=== PATIENT | male | born 1960 | race Caucasian/White ===

== ENCOUNTER 2017-09-11 07:49 | Inpatient (IN) | payer OTHER, SELFPAY ==
[2017-09-11] VITALS (12 sets, daily range): BP systolic 117–164; BP diastolic 74–95; PULSE 76–114; RESP 14–20; TEMP 36.8–37.4; O2SAT 96–98; BMI 32.2; BMI 31.5
--- NOTE | 2017-09-11 08:16 | EKG12_ITS ---
Test Reason : SOB Blood Pressure : / mmHG Vent. Rate : 078 BPM Atrial Rate : 078 BPM P-R Int : 184 ms QRS Dur : 082 ms QT Int : 378 ms P-R-T Axes : 070 040 057 degrees QTc Int : 430 ms Normal sinus rhythm Normal ECG Confirmed by ANDRE SZYMANSKI, TAMI ([id number]), commercial production editor NEISHA GIBBS ([id number] on 09/12/2017 1:07:22 PM Referred By: LINDSAY Confirmed By:TAMI POWELL MD
--- NOTE | 2017-09-11 08:17 | RAD_ITS ---
STUDY: X-RAY CHEST REASON FOR EXAM: Male, 56 years old. Shortness of breath and cough TECHNIQUE: PA and lateral views of the chest. COMPARISON: 2011 FINDINGS: EKG leads overlie the chest, stable elevation of the right hemidiaphragm Lungs are expanded. Left lung is clear. Right lung shows new opacification the right lung base, likely atelectasis but early infiltrate cannot be excluded. No demonstrated effusion. Follow-up recommended to assure resolution Normal size heart. Normal mediastinum and raulito. Normal visualized pulmonary arteries. Normal visualized aortic arch and descending thoracic aorta. Normal visualized thoracic spine. Normal visualized ribs, clavicles, and shoulders. There is no demonstrated abnormality of the visualized soft tissue structures of the upper abdomen. RAD/Chest PA and Lateral IMPRESSION: New opacification in the right lung base, likely atelectasis but early infiltrate cannot be excluded. Follow-up recommended to assure resolution Electronically Signed: Larry Gonsales MD at 9:28 EDT , Service support ,
--- NOTE | 2017-09-11 08:22 | ED.VISSUMM ---
- ER Visit Summary Date of Service: 09/11/17 Chief Complaint: Shortness of breath History of Present Illness: The patient is a 56 M states that this morning he was sent to the emergency department by urgent care for low oxygen levels. States his oxygen levels were 92% there. Patient reports that he quit smoking about 1 year ago. Patient states that 6 weeks ago began to have shortness of breath and a cough. He went to urgent care and was placed on a course of doxycycline and prednisone. 2 weeks later he returned had a chest x-ray that was clear. He was placed on tapering dose of prednisone and albuterol MDI. He states that by last Monday he was feeling better but his cough returned on and now seems to be worse. He notes a yellowish to green phlegm production. Denies any fevers. He traveled to [place] over the weekend. She denies a history of asthma COPD. He denies any chest pain. Has a leg swelling. No night sweats or weight loss. He states that in March of last year he had a chest x-ray that showed a left-sided nodule. He ended up having a CT scan and they recommended follow-up in 1 year. Physical Examination: 158/95 temperature 98.2 heart rate of 85 respirations are 17 pulse ox is 96% on room air with a good waveform Gen: Well-nourished well-developed Head: Normocephalic atraumatic Eyes: Perrl EOMI ENT: TMs clear no rhinorrhea moist mucous membranes Neck: Supple no lymphadenopathy no JVD nontender CVS: Regular rate rhythm no murmurs normal S1-S2 Respiratory: No distress bilateral expiratory wheezing left greater than right bilaterally chest nontender Abdomen: Soft nontender nondistended normal bowel sounds no masses Back: Nontender Extremity: Nontender no edema Skin: Normal color no rash Neuro: alert orientated ?3 CN II-XII intact normal strength sensation reflexes gait cerebellar Psych: Normal affect normal mood Test Results: Count 11.2. EKG sinus at a rate of 78. Chest x-ray shows right-sided atelectasis versus infiltrate. Emergency Department Course and Treatment: Breathing treatments as well as Solu-Medrol. Repeat examination shows the patient to have increased aeration but significantly more wheezing now inspiratory and expiratory. Patient also received Levaquin after blood cultures. I believe this is a failure of outpatient treatment. Our plan is admission. Impression:. Pneumonia This note was generated with [employer] dictation software. It may contain incorrect words, spelling, and punctuation that were not noted in review of the chart prior to signing ED Disposition - Plan for ED Patient: Chief Complaint: Shortness of Breath Referrals: Care Physician,No Primary [Primary Care Provider] -
[2017-09-11] MEDS: Ipratropium/Albuterol Sulfate 3 ML AMPUL.NEB INHALATION ×3 (08:30→19:44)
[2017-09-11] MEDS: Albuterol 2.5 MG/3 ML VIAL.NEB. INHALATION ×3 (08:30→08:51)
[2017-09-11 08:38] LABS: Absolute Lymphocyte Count 2.25 X10^3/ul (0.83-4.51); Absolute Neutrophil Count 6.1 X10^3/uL (2.0-7.7); Basophil# 0.07 X10^3/uL; Basophil% 0.6 % (0-1); Eosinophils% 17.2 % (0-5); Hematocrit 43.5 % (40-54); Hemoglobin 15.7 g/dl (13.0-16.5); Lymphocyte # 2.25 X10^3/ul (4.0); Lymphocyte % 19.2 % (19-41); Mean Corp Hgb Conc 36.1 g/gl (32-36); Mean Corpuscular Volume 91.4 fL (80-94); Mean Platelet Vol. 9.4 fl (6.2-12.0); Monocyte# 1.03 X10^3/uL; Monocyte% 8.8 % (0-10); Neutrophil # 6.13 X10^3/uL (2.7-7.7); Neutrophil % 52.3 % (47-70); Platelet Count 169 K/mm3 (150-450); RBC Distribution Width SD 43.1 fl (35.1-43.9); Red Blood Count 4.76 M/mm3 (4.6-6.2); White Blood Count 11.7 K/mm3 (4.4-11.0)
[2017-09-11 08:39] LABS: Differential Indicated SCAN CRITERIA MET; Eosinophil# 2.02 X10^3/uL; POSITIVE COUNT NO; POSITIVE DIFFERENTIAL YES; POSITIVE MORPHOLOGY NO
[2017-09-11 08:54] LABS: Anion Gap 7 (5-15); BUN 14 mg/dL (7-18); BUN/Creat Ratio 15.7 RATIO (10-20); Calcium,Total 8.2 mg/dL (8.5-10.1); Chloride 109 mmol/L (98-107); Creatinine, Serum 0.89 mg/dL (0.70-1.30); EST Glomerular Filtration Rate 93 mL/min (>60); Est Glom Filt Rate - Afr Amer 113 mL/min (>60); Estimated Creatinine Clearance 89.66 ml/min; Glucose 138 mg/dL (74-106); Potassium 4.1 mmol/L (3.5-5.1); Sodium Level 141 mmol/L (136-145)
[2017-09-11 09:12] LABS: BNP,B-Type NATRIURETIC PEPTIDE 13.4 pg/mL (0-100)
[2017-09-11] MEDS: MethylPREDNISolone 125 MG/2 ML Vial IV (11:06)
[2017-09-11] MEDS: levoFLOXacin IV 750 MG/150 ML BAG 100 MG IV (11:19)
--- NOTE | 2017-09-11 12:14 | HP.PCM_ITS ---
Problem List (1) COPD exacerbation Status: Acute (2) PNA (pneumonia) Status: Acute Qualifiers: Laterality: right Lung location: lower lobe of lung (3) Anxiety Status: Chronic History of Present Illness Date of Admission: 09/11/17 Chief Complaint: SOB The patient is a 56 year old M who is a prior smoker and former alcoholic who presents to the ER with SOB at rest and exertion that has worsened over the last 2 days. He has been dealing with this for about a month. He was treated by his PCP initially a month ago with doxycycline and steroids. He did not get better and was then placed on a steroid taper starting with prednisone 60 mg. He started to improve but worsened 2 days ago. He has been travelling back and forth from [place] where he is moving here from. He denies sick contacts. He has no fever or chills. He has a cough with yellow green sputum production. He has no CP or pleurisy. He quit smoking one year ago and has no prior dx of COPD. He is very wheezy. He is stable off O2 in the ER. [] Past Medical History Past Medical History (Chronic Problems): Chronic Problems Anxiety (Chronic) Allergies No Known Allergies Allergy (Verified 09/11/17 07:50) Home Medications: Ambulatory Orders Medication Instructions Recorded Citalopram [Celexa] 40 mg PO DAILY 09/11/17 Quetiapine Fumarate [Seroquel] 100 mg PO QHS 09/11/17 Surgical History: no surgical history Psychiatric History: Anxiety Lives: With Family Smoking Status: Former smoker Tobacco Use: Cigarettes Alcohol: Sober Drugs: None - *Family History Maternal History Items: Cancer - uterine, Diabetes Paternal History Items: Heart Disease - CHF Review of Systems Constitutional: Denies: Chills, Fever, Weight Change HEENT: Denies: Head Aches, Sinus Congestion, Sinus Drainage Cardiovascular: Denies: Chest Pain, Palpitations Respiratory: Reports: Cough, Shortness of Breath, Shortness of breath at rest, Shortness of breath upon exertion, Sputum production, Wheezing Gastrointestinal: Denies: Abdominal Pain, Nausea, Vomiting Genitourinary: Denies: Dysuria Musculoskeletal: Denies: Joint Pain, Joint Tenderness Skin: Denies: Rash, Wounds Neurological: Denies: Numbness, Tingling, Focal weakness Psychiatric: Reports: Anxiety. Denies: Depression, Homicidal Ideations, Suicidal Ideations Hematologic/ Lymphatic: Denies: Easy Bruising, Easy Bleeding VTE Information - Inpt Only VTE Present on Admission: No VTE Mechan Device Prophylaxis: SCD's VTE Pharm Prophylaxis ordered?: Yes Patient Problems: Active and Suspected Problems COPD exacerbation (Acute) PNA (pneumonia) (Acute) - Physical Exam General: Alert, Oriented x3, Cooperative HEENT: Atraumatic, PERRLA, EOMI, Normocephalic Neck: Supple, No JVD, Negative Carotid Bruits Lungs: Normal air movement, Wheezes - severe wheezing throughout all lung leahy. Cardiovascular: Regular rate, No murmurs Abdomen: Bowel Sounds Present, Soft, Non Tender Extremities: No edema, Capillary Refill Less than 3 Seconds Skin: No rashes, No breakdown Musculoskeletal: No Tenderness to Palpation of Joints or Extremities Neurological: Cranial nerves II-XII grossly intact Psych/Mental Status: Normal Affect, Appropriate Vital Signs Temp Pulse Resp BP Pulse Ox 98.2 F 81 20 H 117/74 96 09/11/17 07:50 09/11/17 11:08 09/11/17 11:08 09/11/17 11:08 09/11/17 11:08 Oxygen Delivery Method Room Air Weight: 96.1 kg Body Mass Index (BMI) 32.2 Laboratory Tests Past 24 Hrs 09/11/17 09/11/17 09/11/17 08:30 08:30 08:30 WBC 11.7 H RBC 4.76 Hgb 15.7 Hct 43.5 MCV 91.4 MCH 33.0 H MCHC 36.1 H RDW 13.0 RDW Differential 43.1 Plt Count 169 MPV 9.4 Immature Gran % (Auto) 1.900 H Neut % (Auto) 52.3 Lymph % (Auto) 19.2 [place] % (Auto) 8.8 Eos % (Auto) 17.2 H Baso % (Auto) 0.6 Absolute Neuts (auto) 6.1 Absolute Lymphs (auto) 2.25 Total Counted Not Reportable Differential Comment COMMENT Diff Path Review May foll Sodium 141 Potassium 4.1 Chloride 109 H Carbon Dioxide 25.0 Anion Gap 7 BUN 14 Creatinine 0.89 Estim Creat Clear Calc 89.66 Est GFR (MDRD) Af Amer 113 Est GFR (MDRD) Non-Af 93 BUN/Creatinine Ratio 15.7 Glucose 138 H Calcium 8.2 L Troponin I < 0.02 B-Natriuretic Peptide 13.4 Assessment/Plan Active and Suspected Problems COPD exacerbation (Acute) PNA (pneumonia) (Acute) 1. Acute exacerbation of COPD - no prior dx. Currently off O2 and stable. Failed outpatient doxy and prednisone x 2. Solumedrol and duonebs. Incentive spirometer. Trop neg. BNP neg. 2. Possible RLL pna - possible infiltrate vs atelectasis on CXR. Leukocytosis, however he has been on steroids. Continue levaquin po, 1 dose IV in ER. Check sputum cx, resp panel, urine antigens. Add mucinex, IS, PEP therapy. 3. Anxiety - home meds 4. Former smoker , quit 1 year ago 5. Former alcoholic DVT ppx: lovenox DC planning: possibly tomorrow, doubt home going needs This patient was seen by Del Lawson PA-C under the supervision of Doctor Rushing.
[2017-09-11] MEDS: Heparin Injection 5,000 UNITS/ML Syringe 5000 UNITS SC ×2 (14:05→21:13)
[2017-09-11] MEDS: Acetaminophen 325 MG Tablet 650 MG PO ×2 (16:36→23:05)
[2017-09-11] MEDS: guaiFENesin Dm 10 ML UDC PO (17:40)
[2017-09-11] MEDS: Mag Hydrox/Al Hydrox/Simeth 30 ML UDC PO ×2 (18:33→23:05)
[2017-09-11] MEDS: QUEtiapine 100 MG Tablet PO (23:05)
[2017-09-12] VITALS (8 sets, daily range): BP systolic 127–160; BP diastolic 66–81; PULSE 80–103; RESP 16–20; TEMP 36.4–37.1; O2SAT 92–99
[2017-09-12] MEDS: guaiFENesin Dm 10 ML UDC PO ×2 (00:12→11:14)
[2017-09-12] MEDS: Ipratropium/Albuterol Sulfate 3 ML AMPUL.NEB INHALATION ×4 (00:54→18:44)
[2017-09-12] MEDS: Heparin Injection 5,000 UNITS/ML Syringe 5000 UNITS SC ×3 (05:55→22:03)
[2017-09-12 06:01] LABS: Absolute Lymphocyte Count 1.62 X10^3/ul (0.83-4.51); Absolute Neutrophil Count 10.6 X10^3/uL (2.0-7.7); Basophil# 0.01 X10^3/uL; Basophil% 0.1 % (0-1); Eosinophil# 0.09 X10^3/uL; Eosinophils% 0.7 % (0-5); Hematocrit 40.9 % (40-54); Lymphocyte # 1.62 X10^3/ul (4.0); Lymphocyte % 12.2 % (19-41); Mean Corp Hgb Conc 34.2 g/gl (32-36); Mean Corpuscular Volume 93.4 fL (80-94); Monocyte# 0.91 X10^3/uL; Monocyte% 6.9 % (0-10); Neutrophil # 10.55 X10^3/uL (2.7-7.7); Neutrophil % 79.6 % (47-70); Platelet Count 156 K/mm3 (150-450); RBC Distribution Width SD 44.2 fl (35.1-43.9); Red Blood Count 4.38 M/mm3 (4.6-6.2); White Blood Count 13.3 K/mm3 (4.4-11.0)
[2017-09-12 06:20] LABS: POSITIVE COUNT NO; POSITIVE DIFFERENTIAL NO; POSITIVE MORPHOLOGY NO
--- NOTE | 2017-09-12 07:55 | RAD_ITS ---
STUDY: X-RAY CHEST REASON FOR EXAM: Male, 56 years old. Pneumonia. TECHNIQUE: PA and lateral views of the chest. COMPARISON: September 11, 2017. FINDINGS: The lungs are underexpanded, similar to the previous radiograph. There is mild interstitial thickening present in both lungs. There is no demonstrated pleural abnormality. Normal size heart. Normal mediastinum and raulito. There is prominence of the pulmonary hilar arteries without peripheral pulmonary vascular congestion. There is atherosclerotic calcification of the aortic arch with tortuosity. Normal visualized thoracic spine. Normal visualized ribs, clavicles, and shoulders. There is no demonstrated abnormality of the visualized soft tissue structures of the upper abdomen. RAD/Chest PA and Lateral IMPRESSION: No radiographic evidence of acute cardiopulmonary disease. Electronically Signed: Chelsea Alvarado MD at 8:23 EDT , Service support ,
[2017-09-12 08:29] LABS: Pathologist Review Reviewed
[2017-09-12] MEDS: Mag Hydrox/Al Hydrox/Simeth 30 ML UDC PO ×2 (08:50→22:03)
[2017-09-12] MEDS: Citalopram 40 MG TABLET PO (09:00)
[2017-09-12] MEDS: levoFLOXacin 750 MG Tablet PO (11:14)
--- NOTE | 2017-09-12 13:05 | CASEMGMT ---
See RN CM Assessment. DC PLAN: home -Intro role of CM to patient in room. He recently moved back to [place] from [place]. Does not have active medical or prescription coverage until September. -Pt has concerns re: cost of medications. SW consulted to assist with pharmacy assistance on dc through [facility] pharmacy. -PCP list given to pt who will set up with PCP after he reviews list with his . Lexx SWENSON RN ACM
--- NOTE | 2017-09-12 13:07 | PCM.PROGNOTE ---
Patient Problems: Active and Suspected Problems COPD exacerbation (Acute) PNA (pneumonia) (Acute) Subjective: Pt still very wheezy and SOB despite not needing O2. He continues to have a cough productive of yellow sputum. He had no fevers or chills overnight. Feels minimal improvement with the aerosols. - Physical Exam General: Alert, Oriented x3, Cooperative HEENT: Atraumatic, PERRLA, EOMI, Normocephalic Neck: Supple, No JVD, Negative Carotid Bruits Lungs: Normal air movement, Wheezes Cardiovascular: Regular rate, No murmurs Abdomen: Bowel Sounds Present, Soft, Non Tender Extremities: No edema, Capillary Refill Less than 3 Seconds Skin: No rashes, No breakdown Musculoskeletal: No Tenderness to Palpation of Joints or Extremities Neurological: Cranial nerves II-XII grossly intact Psych/Mental Status: Normal Affect, Appropriate, Alert and oriented to time, place, person, mood and affect Vital Signs Temp Pulse Resp BP Pulse Ox 97.6 F L 93 16 127/78 H 99 09/12/17 09:15 09/12/17 09:15 09/12/17 09:15 09/12/17 09:15 09/12/17 09:15 Oxygen Delivery Method Room Air Weight: 94.092 kg Body Mass Index (BMI) 31.5 Intake and Output for Last 24 Hours 09/10/17 09/11/17 09/12/17 23:59 23:59 23:59 Intake Total 1000 / 1000 900 / 900 Balance 1000 / 1000 900 / 900 Laboratory Tests Past 24 Hrs 09/12/17 05:18 WBC 13.3 H RBC 4.38 L Hgb 14.0 Hct 40.9 MCV 93.4 MCH 32.0 MCHC 34.2 RDW 13.0 RDW Differential 44.2 H Plt Count 156 MPV 10.0 Immature Gran % (Auto) 0.500 Neut % (Auto) 79.6 H Lymph % (Auto) 12.2 L [place] % (Auto) 6.9 Eos % (Auto) 0.7 Baso % (Auto) 0.1 Absolute Neuts (auto) 10.6 H Absolute Lymphs (auto) 1.62 Total Counted Not Reportable Medical Necessity - Tobacco Use Smoking Status: Former smoker Tobacco Use: Cigarettes Assessment/Plan Active and Suspected Problems COPD exacerbation (Acute) PNA (pneumonia) (Acute) 1. Acute exacerbation of COPD - no prior dx. Currently off O2 and stable. Failed outpatient doxy and prednisone x 2. Solumedrol. Minimal improvement with albuterol. Add duonebs. Add incentive spirometer. Trop neg, BNP neg. 2. Acute bronchitis - continue PO levaquin and mucinex. Pna ruled out with repeat CXR showing no infiltrate. Blood cx pending. Leukocytosis probably 2/2 steroids outpatient and inpatient. 3. Anxiety - home meds 4. Former smoker , quit 1 year ago 5. Former alcoholic DVT ppx: lovenox DC planning: minimally improved. Will continue to monitor overnight. This patient was seen by Del Lawson PA-C under the supervision of Doctor Rushing.
--- NOTE | 2017-09-12 16:55 | PCA ---
pt out walking in the [place]
[2017-09-12] MEDS: QUEtiapine 100 MG Tablet PO (22:03)
[2017-09-13] VITALS (8 sets, daily range): BP systolic 140–147; BP diastolic 80–84; PULSE 65–104; RESP 18–20; TEMP 36.4–37; O2SAT 95–98
[2017-09-13] MEDS: Albuterol 2.5 MG/3 ML VIAL.NEB. INHALATION (01:18)
[2017-09-13] MEDS: 0.9% NaCl Peripheral Flush Adult/Peds IV ×4 (06:00→22:23)
[2017-09-13] MEDS: Heparin Injection 5,000 UNITS/ML Syringe 5000 UNITS SC ×3 (06:00→22:23)
[2017-09-13] MEDS: Ipratropium/Albuterol Sulfate 3 ML AMPUL.NEB INHALATION ×3 (06:35→19:49)
[2017-09-13] MEDS: MethylPREDNISolone 125 MG/2 ML Vial 60 MG IV ×2 (10:23→14:12)
[2017-09-13] MEDS: levoFLOXacin 750 MG Tablet PO (10:24)
[2017-09-13] MEDS: Citalopram 40 MG TABLET PO (10:24)
[2017-09-13 12:29] LABS: Bacteria 0 SEEN /hpf (None Seen); Mucous, Urine 0 SEEN /hpf (<or=2+); Red Blood Cells-Urine 0 SEEN /hpf (0-5); Squamous Epithelial Cells - UA 0 SEEN /hpf (0-5); White Blood Cells 0 SEEN /hpf (0-5)
[2017-09-13 12:45] LABS: Color, Urine Yellow (Yellow); Glucose, Dipstick Normal (Normal); Ketone-Dipstick Negative (Negative); Leukocyte Esterase-Dipstick Negative /ul (Negative); Nitrite-Dipstick Negative (Negative); Occult Blood-Urine Negative /ul (Negative); Protein-Dipstick Negative (Negative); Urine Bilirubin Dipstick Negative (Negative); Urine Clarity Clear (Clear); Urine Urobilinogen Normal (Normal)
--- NOTE | 2017-09-13 14:51 | PCM.PROGNOTE ---
Patient Problems: Active and Suspected Problems COPD exacerbation (Acute) PNA (pneumonia) (Acute) Subjective: Pt continues to have cough and SOB, not requiring O2. No fevers or chills. Pt has not been receiving solumedrol, will start. He has been receiving aerosols. His respiratory panel is negative. - Physical Exam General: Alert, Oriented x3, Cooperative HEENT: Atraumatic, PERRLA, EOMI, Normocephalic Neck: Supple, No JVD, Negative Carotid Bruits Lungs: Clear to auscultation, Normal air movement, Wheezes - expiratory Cardiovascular: Regular rate, No murmurs Abdomen: Bowel Sounds Present, Soft, Non Tender Extremities: No edema, Capillary Refill Less than 3 Seconds Skin: No rashes, No breakdown Musculoskeletal: No Tenderness to Palpation of Joints or Extremities Neurological: Cranial nerves II-XII grossly intact Psych/Mental Status: Normal Affect, Appropriate, Alert and oriented to time, place, person, mood and affect Vital Signs Temp Pulse Resp BP Pulse Ox 98.4 F 81 18 140/83 H 98 09/13/17 13:43 09/13/17 13:43 09/13/17 13:43 09/13/17 13:43 09/13/17 13:43 Oxygen Delivery Method Room Air Weight: 94.092 kg Body Mass Index (BMI) 31.5 Intake and Output for Last 24 Hours 09/11/17 09/12/17 09/13/17 23:59 23:59 23:59 Intake Total 1000 / 1000 900 / 900 700 / 700 Balance 1000 / 1000 900 / 900 700 / 700 Microbiology Past 72 Hours 09/12/17 13:00 Respiratory Panel (PCR) - Final Mucosa - Nasopharyngeal Laboratory Tests Past 24 Hrs 09/13/17 12:20 Urine Color Yellow Urine Clarity Clear Urine pH 8.0 Ur Specific [place] 1.010 Urine Protein Negative Urine Glucose (UA) Normal Urine Ketones Negative Urine Occult Blood Negative Urine Nitrite Negative Urine Bilirubin Negative Urine Urobilinogen Normal Ur Leukocyte Esterase Negative Urine RBC 0 SEEN Urine WBC 0 SEEN Ur Squamous Epith Cells 0 SEEN Urine Bacteria 0 SEEN Urine Mucus 0 SEEN Medical Necessity - Tobacco Use Smoking Status: Former smoker Tobacco Use: Cigarettes Assessment/Plan Active and Suspected Problems COPD exacerbation (Acute) PNA (pneumonia) (Acute) 1. Acute exacerbation of COPD - start solumedrol, continue duonebs. Remains off O2. Respiratory panel neg. 2. Acute bronchitis - continue PO levaquin and mucinex. Pna ruled out with repeat CXR showing no infiltrate. Blood cx pending. Leukocytosis probably 2/2 steroids outpatient and inpatient. 3. Anxiety - home meds 4. Former smoker , quit 1 year ago 5. Former alcoholic DVT ppx: lovenox DC planning: DC home later today or in AM. This patient was seen by Del Lawson PA-C under the supervision of Doctor Rushing.
[2017-09-13] MEDS: Acetaminophen 325 MG Tablet 650 MG PO (15:18)
[2017-09-13] MEDS: QUEtiapine 100 MG Tablet PO (22:23)
[2017-09-14 01:19] VITALS: PULSE 110; RESP 14
[2017-09-14] MEDS: Ipratropium/Albuterol Sulfate 3 ML AMPUL.NEB INHALATION ×2 (01:19→07:04)
[2017-09-14 01:33] VITALS: BP 127/65; PULSE 110; RESP 20; TEMP 36.7; O2SAT 94
[2017-09-14] MEDS: Acetaminophen 325 MG Tablet 650 MG PO (02:14)
[2017-09-14] MEDS: Mag Hydrox/Al Hydrox/Simeth 30 ML UDC PO (02:14)
[2017-09-14] MEDS: 0.9% NaCl Peripheral Flush Adult/Peds IV (06:20)
[2017-09-14 07:04] VITALS: PULSE 100; RESP 22; O2SAT 95
--- NOTE | 2017-09-14 08:33 | PCM.DC ---
- Discharge Diagnoses Current Active Problems: Current Active and Chronic Problems COPD exacerbation (Acute) PNA (pneumonia) (Acute) Anxiety (Chronic) You will use the following diet at home:: No restrictions Your food should be the consistency of: Regular Your liquids should be the consistency of: Regular/Thin Discharge Activity: Return to Normal Activity Weight Bearing Status: Full weight bearing Allergies/Adverse Reactions: Allergies codeine Allergy (Verified 09/11/17 16:39) Itching Medications to take at Discharge Citalopram [Celexa] 40 mg PO DAILY 09/11/17 Quetiapine Fumarate [Seroquel] 100 mg PO QHS 09/11/17 Acetaminophen [Tylenol Tablet] 650 mg PO Q6H PRN PRN tablet 09/14/17 Albuterol IH (ProAir) [Proair Hfa (SP)Vent Pts] 2 puff INHALATION [id number] #1 inhaler 09/14/17 Guaifenesin Dm [Robitussin Dm] 10 ml PO Q6H PRN PRN udc 09/14/17 Prednisone 20 mg PO UD #30 tab 09/14/17 levoFLOXacin tablet [Levaquin tablet] 750 mg PO DAILY@1100 #3 tab 09/14/17 The following prescriptions were given: levoFLOXacin tablet [Levaquin tablet] 750 mg PO DAILY@1100 #3 tab Prednisone 20 mg PO UD #30 tab Albuterol IH (ProAir) [Proair Hfa (SP)Vent Pts] 2 puff INHALATION [id number] #1 inhaler Primary Care Physician: Care Physician,No Primary [Primary Care Provider] - Please follow up with your Primary Care Physician in: in 1-2 weeks
[2017-09-14 08:51] VITALS: BP 149/89; PULSE 106; RESP 18; TEMP 36.7; O2SAT 96
[2017-09-14 08:54] VITALS: PULSE 106
[2017-09-14] MEDS: Citalopram 40 MG TABLET PO (09:01)
--- NOTE | 2017-09-14 09:45 | CASEMGMT ---
Social Work Referral from RN as pt will need RX assistance program. KRISTY met with pt who states insurance will be effective 09/17/17 but will need assistance with prescriptions for d/c today. KRISTY explained that over the counter meds are not covered but new meds that have been ordered will be covered. Pt would like to use [facility] Rx assistance. [facility] retail pharmacy called and requested form completed and given to them. SW provided RX assistance form and prescriptions to pharmacy and pt aware to pick meds up on his way out. No further needs. GUILHERME Gordon
--- NOTE | 2017-09-16 19:31 | PCM.DC.SUM ---
Discharge Date and Diagnosis Date of Admission: 09/11/17 Date of Discharge: 09/14/17 - Primary Discharge Diagnosis #1 acute exacerbation of COPD #2 acute gram-positive bacterial bronchitis #3 anxiety disorder #4 right lower lobe atelectasis - Secondary Discharge Diagnosis Chronic Problems Anxiety (Chronic) Hospital Course and Treatment Operations: None Procedures: None Summary of Care Provided: The patient is a 56 year old M who was seen in the emergency room at [facility] with chief complaint of shortness of breath and cough. He been on outpatient antibiotic courses approximately 2-3 weeks prior and on courses of outpatient prednisone without improvement. Patient admitted to coughing up yellow sputum, patient quit smoking approximately a year ago. On examination was marked expiratory wheezes bilaterally, chest x-ray indicated a right lower lobe infiltrate but this was questionable, white blood cell count was slightly elevated, and the patient was admitted to [place] [address] initially for right lower lobe pneumonia and acute exacerbation of COPD. Patient was treated with IV Levaquin and aggressive aerosol treatments, the following day, chest x-ray showed no right lower lobe pneumonia and it was felt that the patient actually did not have pneumonia-this is probably atelectasis with acute gram-positive bronchitis. Patient continued to have expiratory wheezes, IV corticosteroids were administered, and the patient's status improved. On 09/14/17, patient was seen and examined felt to be in stable condition for discharge home Discharge Activity: Return to Normal Activity Weight Bearing Status: Full weight bearing Home Medications: Medications to take at Discharge Citalopram [Celexa] 40 mg PO DAILY 09/11/17 Quetiapine Fumarate [Seroquel] 100 mg PO QHS 09/11/17 Acetaminophen [Tylenol Tablet] 650 mg PO Q6H PRN PRN tablet 09/14/17 Albuterol IH (ProAir) [Proair Hfa (SP)Vent Pts] 2 puff INHALATION [id number] #1 inhaler 09/14/17 Guaifenesin Dm [Robitussin Dm] 10 ml PO Q6H PRN PRN udc 09/14/17 Prednisone 20 mg PO UD #30 tab 09/14/17 levoFLOXacin tablet [Levaquin tablet] 750 mg PO DAILY@1100 #3 tab 09/14/17 Following Prescrptions Were Given to Patient: levoFLOXacin tablet [Levaquin tablet] 750 mg PO DAILY@1100 #3 tab Prednisone 20 mg PO UD #30 tab Albuterol IH (ProAir) [Proair Hfa (SP)Vent Pts] 2 puff INHALATION [id number] #1 inhaler Primary Care Physician: Care Physician,No Primary [Primary Care Provider] - Please follow up with your Primary Care Physician in: in 1-2 weeks Disposition: Home Minutes spent on discharge:: 35 Patient Condition:: Stable Medical Necessity - Tobacco Use Smoking Status: Former smoker Tobacco Use: Cigarettes Meaningful Use Info Meaningful Use Diagnoses (Choose all that apply): None applicable Code Visit Inpatient E&M: 88907 Disch Hosp
--- NOTE | 2017-09-16 19:35 | DS.PCM_ITS ---
Discharge Date and Diagnosis Date of Admission: 09/11/17 Date of Discharge: 09/14/17 - Primary Discharge Diagnosis #1 acute exacerbation of COPD #2 acute gram-positive bacterial bronchitis #3 anxiety disorder #4 right lower lobe atelectasis - Secondary Discharge Diagnosis Chronic Problems Anxiety (Chronic) Hospital Course and Treatment Operations: None Procedures: None Summary of Care Provided: The patient is a 56 year old M who was seen in the emergency room at [facility] with chief complaint of shortness of breath and cough. He been on outpatient antibiotic courses approximately 2-3 weeks prior and on courses of outpatient prednisone without improvement. Patient admitted to coughing up yellow sputum, patient quit smoking approximately a year ago. On examination was marked expiratory wheezes bilaterally, chest x-ray indicated a right lower lobe infiltrate but this was questionable, white blood cell count was slightly elevated, and the patient was admitted to [place] [address] initially for right lower lobe pneumonia and acute exacerbation of COPD. Patient was treated with IV Levaquin and aggressive aerosol treatments, the following day, chest x- ray showed no right lower lobe pneumonia and it was felt that the patient actually did not have pneumonia-this is probably atelectasis with acute gram- positive bronchitis. Patient continued to have expiratory wheezes, IV corticosteroids were administered, and the patient's status improved. On , patient was seen and examined felt to be in stable condition for discharge home Discharge Activity: Return to Normal Activity Weight Bearing Status: Full weight bearing Home Medications: Medications to take at Discharge Citalopram [Celexa] 40 mg PO DAILY 09/11/17 Quetiapine Fumarate [Seroquel] 100 mg PO QHS 09/11/17 Acetaminophen [Tylenol Tablet] 650 mg PO Q6H PRN PRN tablet 09/14/17 Albuterol IH (ProAir) [Proair Hfa (SP)Vent Pts] 2 puff INHALATION [id number] #1 inhaler 09/14/17 Guaifenesin Dm [Robitussin Dm] 10 ml PO Q6H PRN PRN udc 09/14/17 Prednisone 20 mg PO UD #30 tab 09/14/17 levoFLOXacin tablet [Levaquin tablet] 750 mg PO DAILY@1100 #3 tab 09/14/17 Following Prescrptions Were Given to Patient: levoFLOXacin tablet [Levaquin tablet] 750 mg PO DAILY@1100 #3 tab Prednisone 20 mg PO UD #30 tab Albuterol IH (ProAir) [Proair Hfa (SP)Vent Pts] 2 puff INHALATION [id number] #1 inhaler Primary Care Physician: Care Physician,No Primary [Primary Care Provider] - Please follow up with your Primary Care Physician in: in 1-2 weeks Disposition: Home Minutes spent on discharge:: 35 Patient Condition:: Stable Medical Necessity - Tobacco Use Smoking Status: Former smoker Tobacco Use: Cigarettes Meaningful Use Info Meaningful Use Diagnoses (Choose all that apply): None applicable Code Visit Inpatient E&M: 57721 Disch Hosp
== END 2017-09-14 10:54 | disposition home or self-care (01) | DRG 192 ==
LOC: ED 08:54 → MS2 12:25
PROVIDERS: Admitting Provider Internal Medicine; Emergency Provider Emergency Medicine; Visit Provider Internal Medicine
DX: J44.1 Chronic obstructive pulmonary disease with (acute) exacerbation (principal); F10.21 Alcohol dependence, in remission; J20.9 Acute bronchitis, unspecified; J44.0 Chronic obstructive pulmonary disease with (acute) lower respiratory infection; Z87.891 Personal history of nicotine dependence; F41.9 Anxiety disorder, unspecified; Z79.899 Other long term (current) drug therapy
CPT/HCPCS: 36415; 71046; 80048; 81001; 83880; 84484; 85025; 87040; 87633; 93005; 94640; 99285; J7050; A4216

== ENCOUNTER 2017-10-06 21:20 | Emergency (ER) | payer OTHER, SELFPAY ==
--- NOTE | 2017-10-06 22:20 | RAD_ITS ---
STUDY: X-RAY CHEST REASON FOR EXAM: Male, 56 years old. Cough TECHNIQUE: Frontal and lateral views of the chest were obtained. COMPARISON: September 12, 2017 FINDINGS: The lungs are underaerated. There are no focal airspace opacities. There is no demonstrated pleural abnormality. The cardiac silhouette is normal in size. The mediastinum and hilar regions are unremarkable. Normal visualized pulmonary arteries. Normal visualized aortic arch and descending thoracic aorta. The thoracic spine is unremarkable. The visualized ribs, clavicles, and shoulders are unremarkable. There is no demonstrated abnormality of the visualized upper abdomen. RAD/Chest PA and Lateral IMPRESSION: There is no evidence of focal consolidation or pleural effusion. Electronically Signed: Jayla Barrera MD at 22:49 EDT Tel Direct: [phone], Service support ,
--- NOTE | 2017-10-07 01:39 | ED.DCSUM_ITS ---
- ER Visit Summary Date of Service: 10/07/17 Chief Complaint: Dyspnea, cough History of Present Illness: The patient is a 56 M 1 week progressive dyspnea and cough with mild sputum. Discharged on September 14 for COPD exacerbation. He is on a steroid taper up to week ago. Symptoms started afterwards. Remote tobacco history. No chest pains. Recently moved back in the area try to get reestablished and into pulmonology and PCP. Almost out of his inhaler. Denies fevers. Concerned due to recent admission. He states given diagnosis of COPD on his last admission. Physical Examination: General: Alert and oriented ?3, no acute distress HEENT: Normocephalic, atraumatic. Moist mucosa membranes Neck: supple, nontender. Cardiovascular: Regular rate and rhythm, no murmurs Respiratory: Coarse breath sounds, symmetric, no distress Abdomen: Soft, nontender, nondistended Extremities: Nontender, no edema, pulses intact ?4 Neuro: no focal neurological deficits. Test Results: Chest x-ray: Negative Emergency Department Course and Treatment: Patient is coarse breath sounds. Vital signs stable, pulse ox normal. Started on prednisone, DuoNeb treatment was given. Chest x-ray negative. Reevaluation had increasing coarse breath sounds with expiratory wheezing lower lobes. Additional DuoNeb treatment was given. Minimal wheezing noted. Symptoms improved. With COPD was started on doxycycline. Additional steroid taper was given. He will follow-up as an outpatient. Return if any worsening symptoms. Treatment Plan: [] Disposition: Discharge Impression: COPD exacerbation This note was generated with [employer] dictation software. It may contain incorrect words, spelling, and punctuation that were not noted in review of the chart prior to signing ED Disposition - Plan for ED Patient: Disposition: Home or Assisted Living Diagnosis: COPD exacerbation Referrals: Care Physician,No Primary [Primary Care Provider] -
== END 2017-10-06 23:55 | disposition home or self-care (01) ==
PROVIDERS: Emergency Provider Emergency Medicine
DX: J44.1 Chronic obstructive pulmonary disease with (acute) exacerbation (principal); Z87.891 Personal history of nicotine dependence
CPT/HCPCS: 71046; 94640; 99282

== ENCOUNTER → 2017-11-17 16:28 | Outpatient (CLI) | payer OTHER, SELFPAY ==
--- NOTE | 2017-11-17 | COLBX_PTH ---
PATIENT: ARGELIA BYRD LOC: [facility] U#:[id number] AGE/SX: 64/M ROOM: RE11/17/[address]: Dr. Main Rodriguez MD : 1960 BED: DIS: SPEC #: [id number] RECD: 11/17/17 11:13 STATUS: RADHA MADHU #: [id number] CHARIS: 11/17/17 00:[address]: Main Rodriguez DEPT: SURGICAL PATHOLOGY RECD BY: Elian Chester ENTERED: 11/23/17 11:13 SP TYPE: COLON BX OTHR DR: Dr. Barbara Escudero MD [facility] Tissues: Ascending colon Procedures: Surgery Specimen Level IV HEADER OPERATION: Colonoscopy and polypectomy PRE-OP DIAGNOSIS: Screening polyp TISSUE SUBMITTED: Proximal ascending colon polyp, rule out adenoma MICROSCOPIC DIAGNOSIS Proximal ascending colon polyp, biopsy: Fragments of tubulovillous adenoma. Fragments of fecal material. SJ:diane 11/23/17 MICROSCOPIC DESCRIPTION Slides are reviewed. GROSS DESCRIPTION Received in fixative is one container labeled with the patient's name and designated proximal ascending colon polyp. The specimen consists of one polyp measuring 2 x 1 x 1 cm. It is serially sectioned. Also received are multiple fragments of mccloud soft tissue fixed with fecal material measuring in aggregate 2 x 2 x 0.2 cm. The entire specimen is submitted in two cassettes as follows: 1 ? polyp, 2 ? rest of the specimen. / LAURITA:diane 11/20/17 TC:1 CPT: 56270
== END ==
PROVIDERS: Family Provider Internal Medicine; PCP Internal Medicine; Visit Provider Internal Medicine Gastroenterology
DX: Z12.11 Encounter for screening for malignant neoplasm of colon (principal); K63.5 Polyp of colon
CPT/HCPCS: 88305

== ENCOUNTER → 2017-12-07 13:32 | Outpatient (CLI) | payer OTHER, SELFPAY ==
--- NOTE | 2017-12-08 09:30 | PFT ---
INTRODUCTION: The patient is a 57-year-old male who presents for pulmonary function testing secondary to a diagnosis of COPD. Respiratory therapy reports good patient effort. Bronchodilators were used during testing. INTERPRETATION: Forced expiration spirometry demonstrates no evidence of a large airways obstructive ventilatory defect. There was no significant response to aerosolized bronchodilators, based upon strict ATS criteria. However, the patient did have a relatively brisk mid flow bronchodilator response. Spirograms of good quality and plateau slowly indicating slow emptying of the lungs. The respiratory flow volume loop appears relatively normal. Body plethysmography was performed and reveals a TLC and RV to be at the upper limits of normal. Diffusing capacity by single breath CO is within normal limits at 93% of predicted. IMPRESSION: These pulmonary function studies are essentially within normal limits. There is no evidence of COPD.
== END ==
PROVIDERS: Family Provider Internal Medicine; PCP Internal Medicine; Visit Provider Internal Medicine
DX: J44.9 Chronic obstructive pulmonary disease, unspecified (principal)
CPT/HCPCS: 94060; 94726; 94729

== ENCOUNTER 2017-12-29 12:26 | Emergency (ER) | payer OTHER, SELFPAY ==
[2017-12-29 12:27] VITALS: BP 164/98; PULSE 85; RESP 16; TEMP 36.7; O2SAT 98; BMI 31.9
[2017-12-29 12:30] VITALS: BP 149/93; PULSE 71; RESP 14; O2SAT 96
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
[2017-12-29 14:47] VITALS: BP 142/87; PULSE 92; RESP 16; O2SAT 98
== END 2017-12-29 14:55 | disposition home or self-care (01) ==
PROVIDERS: Emergency Provider Emergency Medicine; Family Provider Internal Medicine; PCP Internal Medicine
DX: S00.93XA Contusion of unspecified part of head, initial encounter (principal); S16.1XXA Strain of muscle, fascia and tendon at neck level, initial encounter; J44.9 Chronic obstructive pulmonary disease, unspecified; Z87.891 Personal history of nicotine dependence; Z79.51 Long term (current) use of inhaled steroids; Z79.899 Other long term (current) drug therapy; V43.53XA Car driver injured in collision with pick-up truck in traffic accident, initial encounter; Y93.I9 Activity, other involving external motion; Y92.410 Unspecified street and highway as the place of occurrence of the external cause; Y99.8 Other external cause status
CPT/HCPCS: 70450; 72125; 99284

== ENCOUNTER 2018-01-02 12:46 | Emergency (ER) | payer OTHER, SELFPAY ==
[2018-01-02 12:47] VITALS: BP 142/70; PULSE 71; RESP 16; TEMP 37.1; O2SAT 94; BMI 31.5
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
[2018-01-02] MEDS: Naproxen 500 MG Tablet PO (14:47)
[2018-01-02 16:31] VITALS: PULSE 85; RESP 14; O2SAT 97
== END 2018-01-02 16:32 | disposition home or self-care (01) ==
PROVIDERS: Emergency Provider Emergency Medicine; Family Provider Internal Medicine; PCP Internal Medicine
DX: M54.42 Lumbago with sciatica, left side (principal); J44.9 Chronic obstructive pulmonary disease, unspecified; F17.220 Nicotine dependence, chewing tobacco, uncomplicated; Z79.51 Long term (current) use of inhaled steroids; Z79.899 Other long term (current) drug therapy
CPT/HCPCS: 72100; 99283

== ENCOUNTER 2018-01-20 22:03 | Emergency (ER) | payer OTHER, SELFPAY ==
[2018-01-20 22:03] VITALS: BP 152/93; PULSE 75; RESP 16; TEMP 36.3; O2SAT 98; BMI 32.8
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
--- NOTE | 2018-01-20 22:37 | ED.DEP ---
ED Disposition - Plan for ED Patient: Disposition: Home or Assisted Living Chief Complaint: Lower Extremity Injury Instructions: ED Contusion Lower Ext Referrals: Barbara Escudero MD [Primary Care Provider] - Additional Instructions: Follow-up for MRI on Monday as scheduled.
== END 2018-01-20 22:44 | disposition home or self-care (01) ==
PROVIDERS: Emergency Provider Emergency Medicine; Family Provider Internal Medicine; PCP Internal Medicine
DX: S80.12XD Contusion of left lower leg, subsequent encounter (principal); J44.9 Chronic obstructive pulmonary disease, unspecified; K21.9 Gastro-esophageal reflux disease without esophagitis; F32.9 Major depressive disorder, single episode, unspecified; Z87.891 Personal history of nicotine dependence; Z79.51 Long term (current) use of inhaled steroids; Z79.899 Other long term (current) drug therapy; V89.2XXD Person injured in unspecified motor-vehicle accident, traffic, subsequent encounter
CPT/HCPCS: 73590; 99282

== ENCOUNTER → 2018-01-23 17:00 | Outpatient (CLI) | payer OTHER, SELFPAY ==
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
== END ==
PROVIDERS: Family Provider Internal Medicine; PCP Internal Medicine
DX: R20.0 Anesthesia of skin (principal); R20.2 Paresthesia of skin
CPT/HCPCS: 72148

== ENCOUNTER 2018-01-24 15:38 | Emergency (ER) | payer OTHER, SELFPAY ==
[2018-01-24 15:39] VITALS: BP 157/98; PULSE 82; RESP 18; TEMP 36.6; O2SAT 98; BMI 32.8
--- NOTE | 2018-01-24 15:56 | VDLE_ITS ---
Reason For Study: LLE pain RIGHT LEFT CFV is compressible, spontaneous, phasic, GSV is normal. competent and demonstrates normal CFV is compressible, spontaneous, phasic, augmentation. competent, and demonstrates normal Image #15 is Right CFV. augmentation. Procedure FV is compressible, spontaneous, phasic, Exam performed portable in ED. competent and demonstrates normal The exam was diagnostic. augmentation. A preliminary report was called and/or faxed POP V is compressible, spontaneous, phasic, to DR. Johnson @ 4:25 pm. competent and demonstrates normal augmentation. T/P Trunk is compressible. PTV is compressible. LT PerV is compressible. Interpretation Summary There is no evidence of left lower extremity deep vein thrombosis. Left greater saphenous vein appears patent and compressible segmentally. Normal flow patterns right common femoral vein Ordering Physician: Tariq Johnson Referring Physician: Viral Mac Performed By: Rocío Pina RDCS, RVT
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
[2018-01-24 16:35] VITALS: BP 148/82; PULSE 80; RESP 14; O2SAT 98
== END 2018-01-24 16:45 | disposition home or self-care (01) ==
LOC: ED 16:06
PROVIDERS: Emergency Provider Emergency Medicine; Family Provider Internal Medicine; PCP Internal Medicine
DX: R60.0 Localized edema (principal); M79.89 Other specified soft tissue disorders
CPT/HCPCS: 93971; 99282

== ENCOUNTER → 2018-01-26 11:22 | Outpatient (CLI) | payer OTHER, SELFPAY ==
[2018-01-26 14:34] LABS: Anion Gap 7 (5-15); BUN 14 mg/dL (7-18); Chloride 104 mmol/L (98-107); Cholesterol 115 mg/dL (200); Creatinine, Serum 1.08 mg/dL (0.70-1.30); EST Glomerular Filtration Rate 75 mL/min (>60); Est Glom Filt Rate - Afr Amer 91 mL/min (>60); Glucose 109 mg/dL (74-106); High Density Lipoprotein 61 mg/dL; Potassium 4.3 mmol/L (3.5-5.1); Sodium Level 136 mmol/L (136-145); Triglycerides 56 mg/dL; Very Low Density Lipoprotein 11 mg/dL (5-40)
[2018-01-30 14:07] LABS: Testosterone, Free 10.64 ng/dL (5.00-21.00)
[2018-01-31 12:05] LABS: Testosterone, % Free 1.85 % (1.50-4.20); Testosterone, Total 575 ng/dL (264-916)
== END ==
PROVIDERS: Family Provider Internal Medicine; PCP Internal Medicine; Visit Provider Internal Medicine
DX: R73.9 Hyperglycemia, unspecified (principal); N52.9 Male erectile dysfunction, unspecified
CPT/HCPCS: 36415; 80048; 80061; 84402; 84403

== ENCOUNTER → 2018-03-02 08:01 | Outpatient (CLI) | payer OTHER, SELFPAY ==
[2018-03-02 10:57] LABS: Hemoglobin A1c 5.9 % (4.2-6.3)
== END ==
PROVIDERS: Family Provider Internal Medicine; PCP Internal Medicine; Visit Provider Internal Medicine
DX: R73.9 Hyperglycemia, unspecified (principal)
CPT/HCPCS: 36415; 83036

== ENCOUNTER 2019-03-06 00:49 | Emergency (ER) | payer MEDICAID, SELFPAY ==
[2019-03-06 00:50] VITALS: BP 180/96; PULSE 75; RESP 20; TEMP 36.7; O2SAT 96; BMI 32.1
--- NOTE | 2019-03-06 01:04 | ED.VIS.GEN ---
History of Present Illness Chief Complaint: Back Narrative: Patient is a 58-year-old male who presents with chief complaint of sciatica. He does have a history of prior similar symptoms. He initially noticed some mild lower back and right leg pain 2 days ago but it became worse today. He is concerned because he has a big job tomorrow and needs to be able to work. He complains of pain in the right lower back with radiation to the right hip lateral thigh and calf. No numbness tingling or weakness. No fevers. No abdominal pain. No urinary retention or fecal incontinence. No prior back surgeries. No trauma. Past Medical History - Allergies and Home Meds Allergies/Adverse Reactions: Allergies codeine Allergy (Verified 03/06/19 00:50) Itching Primary Care Physician: Barbara Escudero MD [Primary Care Provider] - Past Medical History: - - Noncontributory Surgical History: no surgical history Smoking Status: Former smoker - Family History Maternal Family History: Family History (Last Reviewed 03/02/18 @ 11:11 by Cammie Michaels) Father Heart disease Grandfather Heart disease Mother Hypertension Cancer Diabetes Grandmother CVA (cerebral vascular accident) Myocardial infarction, Onset Age: 60 Family History: Reports: Cancer - uterine, Diabetes Paternal Family History: Family History (Last Reviewed 03/02/18 @ 11:11 by Cammie Michaels) Father Heart disease Grandfather Heart disease Mother Hypertension Cancer Diabetes Grandmother CVA (cerebral vascular accident) Myocardial infarction, Onset Age: 60 Family History: Reports: Heart Disease - CHF Review of Systems All systems negative except as indicated General: Denies: Fever Cardiovascular: Denies: Chest pain Respiratory: Denies: Dyspnea Musculoskeletal: Reports: Back pain Physical Exam Vital Signs/Narrative: Vital Signs Temp Pulse Resp BP Pulse Ox 03/06/19 00:50 98.0 F 75 20 H 180/96 H 96 Inital Vital Signs reviewed: Yes General: Well nourished Head: Normocephalic Eyes: EOMI ENT: Moist mucous membranes Cardiovascular: Regular rate Respiratory: No distress Abdomen: Soft, Nontender, Nondistended Back: Nontender Extremities: Nontender, No edema, - - Easily palpable right dorsalis pedis pulse Neurological: - - 5 out of 5 dorsiflexion, plantarflexion, extensor hallucis longus Diagnostic/Tx/Re-eval - Medical Decision Making Patient's examination is unremarkable. He has normal strength and sensation of the right lower extremity. He has an easily palpable pulse. Skin is warm with brisk capillary refill. He does not have signs or symptoms or exam findings to suggest acute surgical pathology such as cauda equina syndrome or epidural abscess. He was given naproxen and we will also start him on prednisone. He was advised to follow-up as an outpatient was discharged home. ED Disposition - Plan for ED Patient: Disposition: [facility] Diagnosis: Lumbar radiculopathy, right Instructions: BACK PAIN w/ SCIATICA Prescriptions: Naproxen [Naprosyn] 500 mg PO BID #20 tab Prescription Printed predniSONE tablet 60 mg PO DAILY #12 tab Prescription Printed Referrals: Barbara Escudero MD [Primary Care Provider] -
[2019-03-06] MEDS: Naproxen 500 MG Tablet PO (01:17)
[2019-03-06] MEDS: predniSONE 20 MG Tablet 60 MG PO (01:17)
== END 2019-03-06 01:22 | disposition short-term general hospital (02) ==
LOC: ED 01:14
PROVIDERS: Emergency Provider Emergency Medicine; Family Provider Internal Medicine; PCP Internal Medicine
DX: M54.16 Radiculopathy, lumbar region (principal); Z87.891 Personal history of nicotine dependence
CPT/HCPCS: 99283

== ENCOUNTER → 2019-03-11 | Outpatient (CLI) | payer MEDICAID, SELFPAY ==
[2019-03-11 08:50] VITALS: BMI 32.1
[2019-03-11 12:28] LABS: Absolute Lymphocyte Count 2.72 X10^3/uL (0.83-4.51); Absolute Neutrophil Count 3.6 X10^3/uL (2.0-7.7); Basophil# 0.07 X10^3/uL; Basophil% 0.9 % (0-1); Eosinophil# 0.51 X10^3/uL; Eosinophils% 6.5 % (0-5); Hematocrit 45.6 % (40-54); Hemoglobin 15.7 g/dL (13.0-16.5); Lymphocyte # 2.72 X10^3/ul (4.0); Lymphocyte % 34.6 % (19-41); Mean Corp Hgb Conc 34.4 g/dL (32-36); Mean Corpuscular Hgb 32.2 pg (27.0-32.0); Mean Corpuscular Volume 93.6 fL (80-94); Mean Platelet Vol. 10.3 fl (6.2-12.0); Monocyte# 0.76 X10^3/uL; Monocyte% 9.7 % (0-10); NRBC Flagged by Analyzer 0 % (0-5); Neutrophil # 3.59 X10^3/uL (2.7-7.7); Neutrophil % 45.8 % (47-70); Platelet Count 206 K/mm3 (150-450); RBC Distribution Width CV 12.3 % (11.6-14.6); RBC Distribution Width SD 42.5 fl (35.1-43.9); Red Blood Count 4.87 M/mm3 (4.6-6.2); White Blood Count 7.9 K/mm3 (4.4-11.0)
[2019-03-11 12:39] LABS: Anion Gap 6 (5-15); BUN 19 mg/dL (7-18); BUN/Creat Ratio 19.2 RATIO (10-20); Calcium,Total 8.7 mg/dL (8.5-10.1); Chloride 106 mmol/L (98-107); Cholesterol 116 mg/dL (200); Creatinine, Serum 0.99 mg/dL (0.70-1.30); EST Glomerular Filtration Rate 83 mL/min (>60); Est Glom Filt Rate - Afr Amer 100 mL/min (>60); Glucose 116 mg/dL (74-106); High Density Lipoprotein 74 mg/dL; Potassium 4.5 mmol/L (3.5-5.1); Sodium Level 140 mmol/L (136-145); Triglycerides 54 mg/dL; Very Low Density Lipoprotein 11 mg/dL (5-40)
== END | disposition home or self-care (01) ==
LOC: BIMLAB 09:05
PROVIDERS: Family Provider Internal Medicine; PCP Internal Medicine; Visit Provider Internal Medicine
DX: I10 Essential (primary) hypertension (principal); J44.9 Chronic obstructive pulmonary disease, unspecified; R73.03 Prediabetes
CPT/HCPCS: 36415; 80048; 80061; 83036; 85025

== ENCOUNTER 2019-06-16 19:50 | Emergency (ER) | payer OTHER, SELFPAY ==
[2019-03-11 08:50] VITALS: BMI 32.1
[2019-06-16 19:51] VITALS: BP 155/96; PULSE 106; RESP 22; TEMP 37.6; O2SAT 97; BMI 31.9
[2019-06-16 19:53] VITALS: BP 155/96; PULSE 106; RESP 20; TEMP 37.6; O2SAT 97
[2019-06-16] MEDS: predniSONE 20 MG Tablet 60 MG PO (20:38)
--- NOTE | 2019-06-16 20:45 | RAD_ITS ---
HISTORY: SOB, WHEEZING AND FEVER ON AND OFF SINCE MONDAYHX OF COPD EXAM: XR Chest 2 Views: COMPARISON: October 06, 2018 FINDINGS: # of images incl. paperwork: 2 Lungs are clear. Heart is not enlarged. No acute osseous pathology perceived. Pulmonary vascularity is distinct. No effusions. RAD/Chest PA and Lateral IMPRESSION: Normal. at 2143 Reported and signed by: Viral Lombardi MD Electronically Signed: Viral Lombardi MD at 21:42 EST Tel , Service support ,
[2019-06-16 21:15] VITALS: PULSE 85; RESP 16
[2019-06-16] MEDS: Albuterol 2.5 MG/3 ML VIAL.NEB. INHALATION (21:17)
[2019-06-16] MEDS: Ipratropium/Albuterol Sulfate 3 ML AMPUL.NEB INHALATION (21:17)
[2019-06-16 21:55] VITALS: BP 138/96; PULSE 103; RESP 18; O2SAT 96
--- NOTE | 2019-06-16 22:13 | ED.DCSUM_ITS ---
- ER Visit Summary Date of Service: 06/16/19 Chief Complaint: Cold History of Present Illness: The patient is a 58 M with cold symptoms for 4 days. Associated with productive cough, fevers, congestion, headache, and shortness of breath. He tried his inhaler at home and it helped. He takes this for COPD. No recent antibiotics or steroids. No chest pain or other associated symptoms. Physical Examination: Vital signs are unremarkable except for heart rate 106. Pulse ox 97% on room air. Patient has wheezing in all leahy with expiration. Heart is regular. Abdomen is soft. Extremities nontender with no edema. Skin appears normal. Test Results: X-ray was normal. Emergency Department Course and Treatment: This sounds infectious. He has a history of COPD. He is wheezing. He is improved with breathing treatments and steroids. Will prescribe Augmentin, prednisone. Use inhalers at home. Follow- up with primary care for recheck. Treatment Plan: As above Disposition: Discharge Impression: 1. Acute bronchitis This note was generated with [employer] dictation software. It may contain incorrect words, spelling, and punctuation that were not noted in review of the chart prior to signing ED Disposition - Plan for ED Patient: Referrals: Barbara Escudero MD [Primary Care Provider] -
--- NOTE | 2019-06-16 22:14 | ED.DEP ---
ED Disposition - Plan for ED Patient: Instructions: BRONCHITIS, Antiobiotic Treatment (Adult) Prescriptions: Amox/Clavulanate Tablet [Augmentin Tablet] 875 mg PO Q12H #20 tab Prescription Printed Prednisone 10 mg PO UD #33 tab Prescription Printed Referrals: Barbara Escudero MD [Primary Care Provider] -
[2019-06-16] MEDS: Amox/Clavulanate 875 MG Tablet PO (22:31)
[2019-06-16 22:33] VITALS: BP 155/98; PULSE 104; RESP 14; O2SAT 93
== END 2019-06-16 22:34 | disposition home or self-care (01) ==
PROVIDERS: Emergency Provider Emergency Medicine; Family Provider Internal Medicine; PCP Internal Medicine
DX: J44.0 Chronic obstructive pulmonary disease with (acute) lower respiratory infection (principal); J20.9 Acute bronchitis, unspecified; F17.220 Nicotine dependence, chewing tobacco, uncomplicated
CPT/HCPCS: 71046; 94640; 99283

== ENCOUNTER → 2020-04-24 10:08 | Outpatient (CLI) | payer OTHER, SELFPAY ==
[2020-04-24 09:13] VITALS: BMI 31.3
[2020-04-24 12:22] LABS: Absolute Lymphocyte Count 2.25 X10^3/uL (0.83-4.51); Absolute Neutrophil Count 3.4 X10^3/uL (2.0-7.7); Basophil# 0.08 X10^3/uL; Basophil% 1.1 % (0-1); Eosinophil# 0.62 X10^3/uL; Eosinophils% 8.8 % (0-5); Hematocrit 46.2 % (40-54); Hemoglobin 16.2 g/dL (13.0-16.5); Lymphocyte # 2.25 X10^3/ul (4.0); Lymphocyte % 31.8 % (19-41); Mean Corp Hgb Conc 35.1 g/dL (32-36); Mean Corpuscular Hgb 32.7 pg (27.0-32.0); Mean Corpuscular Volume 93.1 fL (80-94); Mean Platelet Vol. 10.6 fl (6.2-12.0); Monocyte# 0.59 X10^3/uL; Monocyte% 8.3 % (0-10); NRBC Flagged by Analyzer 0 % (0-5); Neutrophil # 3.44 X10^3/uL (2.7-7.7); Neutrophil % 48.7 % (47-70); Platelet Count 170 K/mm3 (150-450); RBC Distribution Width CV 12.8 % (11.6-14.6); RBC Distribution Width SD 43.5 fl (35.1-43.9); Red Blood Count 4.96 M/mm3 (4.6-6.2); White Blood Count 7.1 K/mm3 (4.4-11.0)
[2020-04-24 12:35] LABS: ALB/GLOB Ratio 1.2 RATIO (0.9-2.4); AST(SGOT) 24 U/L (15-37); Alanine Aminotransfer ALT/SGPT 62 U/L (16-61); Alkaline Phosphatase 78 U/L (45-117); Anion Gap 8 (5-15); BUN 15 mg/dL (7-18); BUN/Creat Ratio 14.7 RATIO (10-20); Calcium,Total 9.1 mg/dL (8.5-10.1); Chloride 106 mmol/L (98-107); Cholesterol 138 mg/dL (200); Creatinine, Serum 1.02 mg/dL (0.70-1.30); EST Glomerular Filtration Rate 79 mL/min (>60); Est Glom Filt Rate - Afr Amer 96 mL/min (>60); Globulin 3.3 g/dL (2.2-4.2); Glucose 130 mg/dL (74-106); High Density Lipoprotein 79 mg/dL; Potassium 4.2 mmol/L (3.5-5.1); Protein, Total 7.3 g/dL (6.4-8.2); Sodium Level 138 mmol/L (136-145); Triglycerides 66 mg/dL; Very Low Density Lipoprotein 13 mg/dL (5-40)
== END ==
PROVIDERS: PCP Internal Medicine; Referring Provider Internal Medicine; Visit Provider Internal Medicine
DX: I10 Essential (primary) hypertension (principal)
CPT/HCPCS: 36415; 80053; 80061; 85025

== ENCOUNTER → 2020-07-24 09:51 | Outpatient (CLI) | payer OTHER, MEDICAID, SELFPAY ==
[2020-07-24 09:08] VITALS: BMI 31.7
--- NOTE | 2020-07-24 09:54 | RAD_ITS ---
STUDY: X-RAY - RIGHT SHOULDER REASON FOR EXAM: Male, 59 years old. Pain. TECHNIQUE: 4 view(s) of the shoulder. COMPARISON: None. FINDINGS: There is moderate degenerative arthrosis of the glenohumeral articulation. There is degenerative arthrosis of the acromioclavicular joint without inferior osseous spur formation. Normal acromion. There is no acute fracture, dislocation or destructive osseous pathology. Normal humeral head and visualized proximal humerus. The soft tissue structures are unremarkable. Normal visualized pulmonary apex. RAD/Shoulder min 2 Views IMPRESSION: Degenerative changes of the right shoulder. Electronically Signed: Sj Gleason DO at 21:58 EST Tel [phone], Service support ,
--- NOTE | 2020-07-24 09:54 | RAD_ITS ---
STUDY: X-RAY - LEFT SHOULDER REASON FOR EXAM: Male, 59 years old. Chronic pain. TECHNIQUE: 4 view(s) of the shoulder. COMPARISON: None. FINDINGS: There is mild degenerative arthrosis of the glenohumeral articulation. There is degenerative arthrosis of the acromioclavicular joint without inferior osseous spur formation. Normal acromion. There is no acute fracture, dislocation or destructive osseous pathology. Normal humeral head and visualized proximal humerus. The soft tissue structures are unremarkable. Normal visualized pulmonary apex. RAD/Shoulder min 2 Views IMPRESSION: Mild degenerative changes of the shoulder. Electronically Signed: Sj Gleason DO at 21:57 EST Tel [phone], Service support ,
== END ==
PROVIDERS: PCP Internal Medicine; Referring Provider Internal Medicine; Visit Provider Internal Medicine
DX: M25.511 Pain in right shoulder (principal); M25.512 Pain in left shoulder
CPT/HCPCS: 73030

== ENCOUNTER 2020-08-17 15:38 | Outpatient (RCR) | payer OTHER, MEDICAID, SELFPAY ==
[2020-08-11 08:42] VITALS: BMI 31.1
--- NOTE | 2020-08-17 17:00 | HP.PTEVAL_ITS ---
Patient's Visit Information ARGELIA BYRD is a 59 year old M referred to Physical Therapy by Dr. Anny Alexis DO with a diagnosis of BILATERAL RTC TENDONITIS,BECEPS TENDONITIS,IMPINGEMENT SYNDROME. Date of Evaluation: 08/17/20 Physical Therapist: Jitendra Loyd, PT, Cert MDT, OCS - Visit Plan Frequency: 2x /Week Duration: 4 Weeks Plan: PT INTERVETIONS ROM,RTC/SCAPULAR STRENGTHENING,POSTURAL EX'S,MODALTIES AND MANUAL THERAPY G-H JOINT - Subjective This 59 y/o male presents to physical therapy with bilateral shoulder pain ,RTC tendontis . Patient has had bilateral shoulder pain for 2years and progressivelly right worse than left. . Patient family DR recommended Orthopdedic DR Sorto . Recommended PT before possible MRI. Patient had x- rays severe G-H OA. Patient meds meloxicam. Aggraveting factors patient pain with overhead activities ,ADLS ,reaching behind back,across body and lifting OH. Alleviating rest. Symptoms worse at night. C/O parathesia/tingling at night in hands. 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 Patient symptoms affects job demands and housework tasks. Patient symptoms affects QOL. SOCIAL: . 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 PALAPTION: tender AC joint. NEURO: denies parathesia/tingling ,but at night in hands ,C5-6-7 1/. AROM SHOULDER : flexion right 140 degrees,left 145 degrees,abduction right 110 degrees,left 10 degrees pain ,ER 80 right,left 85 degrees,IR L2 ,LEFT T10. MMT: RTC RIGHT 4-/5,LFT 4/5,DELTOID RIGHT4-/5,LEFT 4-/5 ANTERIOR ,LATERAL DELTOID 3+/5. - Special Tests C/S Radiculapathy - Left Upper limb tension test: Negative C/S Radiculapathy - Right Upper limb tension test: Negative C/S Radiculapathy - Left Spurlings: Negative C/S Radiculapathy - Right Spurlings: Negative R Shoulder Empty Can - SS: Positive R Shoulder Belly Press - SupScap: Negative R Shoulder Neer - Impingement: Positive R Shoulder Raymundo Demetrio - Impingement: Positive R Shoulder Speeds Test - Labrum/Biceps: Negative R Shoulder Shrug Sign - OA/Adhesive Capsulitis: Positive - Goals Goal 1:: I with HEP Goal Time Frame: 4-6 Weeks Goal 2:: Decrease bilateral shoulder pain by 50% or > to improve function with ADLS' Goal Time Frame: 4-6 Weeks Goal 3:: Patient increase AROM shoulder flexion /abd 145 degrees with less pain to improve function with ADL'S Goal Time Frame: 4-6 Weeks Goal 4:: Patient to improve strength bilateral shoulder 4/5 to improve function with tasks above 90 degrees. Goal Time Frame: 4-6 Weeks Goal 5:: Patient to improve quick suarez by 5 points or > to improve QOL Goal Time Frame: 4-6 Weeks - Rehabilitation Potential Physical Therapy Diagnosis: This 59 y/o male presents with impingement bilateral shoulder right worse than left with pain affecting ROM ,strength and function with OH activities and ADLS' thus benifit from skilled PT Rehabilitation Potential: Good - Anticipated Interventions Patient/Client Instruction: Educate patient on: Condition, Plan of Care For the Purpose of:: To decrease pain, To increase ROM, To improve muscle performance and motor function, To improve ability to perform ADL's, To increase tolerance to activity/condition/position, To improve performance and independence with ADL's, To improve ability of physical actions for home/community/work/leisure, To improve health of tissue, To decrease soft tissue restriction, To increase flexibility/ROM, To improve ability to perform tasks related to life management Therapeutic Exercise to Include: Strength training, Postural training, Flexibilty training, Passive ROM, Active ROM, Scapular Strength/Stabilization Comment: RTC For the Purpose of:: To decrease pain, To increase ROM, To improve muscle performance and motor function, To improve ability to perform ADL's, To increase tolerance to activity/condition/position, To improve ability of physical actions for home/community/work/leisure, To improve health of tissue, To decrease soft tissue restriction, To increase flexibility/ROM, To improve ability to perform t asks related to life management Manual Therapy Techniques to Include: Mobilization Comment: G-H For the Purpose of:: To decrease pain, To increase ROM TENS: Yes IF ES: Yes Cryotherapy (ice pack, ice massage): Yes Thermo therapy (hot pack): Yes Ultrasound (thermal/non thermal): Yes For the Purpose of:: To decrease pain, To increase ROM, To improve nutrient delivery to tissue, To increase oxygenation perfusion, To improve health of tissue, To decrease soft tissue restriction Thank you for the opportunity to evaluate your patient. For Medicare and Medicare HMO plans, please review the plan of care and approve it. It will need to be FAXED BACK to us at [phone] for Medicare purposes. For Medicare only, by signing this I certify the plan of care. Please let me know if there are questions or concerns regarding this plan of care. Physician Signature: Date:
--- NOTE | 2021-03-19 13:28 | HP.PT.NRP ---
ARGELIA BYRD was seen in my office for initial evaluation on 08/17/20. The following Plan of Care was established for this patient: Initial Frequency: 2x /Week Initial Duration: 4 Weeks Patient/Client Instruction: Educate patient on: Condition, Plan of Care For the Purpose of:: To decrease pain, To increase ROM, To improve muscle performance and motor function, To improve ability to perform ADL's, To increase tolerance to activity/condition/position, To improve performance and independence with ADL's, To improve ability of physical actions for home/community/work/leisure, To improve health of tissue, To decrease soft tissue restriction, To increase flexibility/ROM, To improve ability to perform tasks related to life management Therapeutic Exercise to Include: Strength training, Postural training, Flexibilty training, Passive ROM, Active ROM, Scapular Strength/Stabilization For the Purpose of:: To decrease pain, To increase ROM, To improve muscle performance and motor function, To improve ability to perform ADL's, To increase tolerance to activity/condition/position, To improve ability of physical actions for home/community/work/leisure, To improve health of tissue, To decrease soft tissue restriction, To increase flexibility/ROM, To improve ability to perform tasks related to life management Manual Therapy Techniques to Include: Mobilization Comment: G-H For the Purpose of:: To decrease pain, To increase ROM TENS: Yes IF ES: Yes Cryotherapy (ice pack, ice massage): Yes Thermo therapy (hot pack): Yes Ultrasound (thermal/non thermal): Yes For the Purpose of:: To decrease pain, To increase ROM, To improve nutrient delivery to tissue, To increase oxygenation perfusion, To improve health of tissue, To decrease soft tissue restriction This patient was last seen in our office . Pertinent comments regarding their Physical therapy will appear below: Patient was seen for PT for HAEP At this point I will be discontinuing this patient from physical therapy. I would be happy to see this patient again in the future if found appropriate by the physician. Thank you! Jitendra Loyd, PT, Cert MDT, OCS Balance/Gait/Functional tests - Balance/Special Test Scores Quick DASH Score: [phone]
== END 2020-08-17 19:00 | disposition home or self-care (01) ==
LOC: PT 15:38
PROVIDERS: PCP Internal Medicine; Referring Provider Orthopaedic Surgery; Visit Provider Orthopaedic Surgery
DX: M77.8 Other enthesopathies, not elsewhere classified (principal); M75.42 Impingement syndrome of left shoulder; M75.41 Impingement syndrome of right shoulder
CPT/HCPCS: 97110; 97162

== ENCOUNTER → 2021-05-25 08:47 | Outpatient (CLI) | payer OTHER, MEDICAID, SELFPAY ==
[2021-05-25 08:59] LABS: Bacteria 0 SEEN /hpf (None Seen); Mucous, Urine 0 SEEN /hpf (<or=2+); Red Blood Cells-Urine 0 SEEN /hpf (0-5); White Blood Cells 0 SEEN /hpf (0-5)
[2021-05-25 12:40] LABS: Absolute Lymphocyte Count 2.85 X10^3/uL (0.83-4.51); Absolute Neutrophil Count 3.5 X10^3/uL (2.0-7.7); Basophil# 0.09 X10^3/uL; Basophil% 1.2 % (0-1); Eosinophil# 0.49 X10^3/uL; Eosinophils% 6.3 % (0-5); Hematocrit 44.7 % (40-54); Hemoglobin 15.6 g/dL (13.0-16.5); Lymphocyte # 2.85 X10^3/ul (0.83-4.51); Lymphocyte % 36.9 % (19-41); Mean Corp Hgb Conc 34.9 g/dL (32-36); Mean Corpuscular Hgb 32.1 pg (27.0-32.0); Mean Platelet Vol. 10.5 fl (6.2-12.0); Monocyte% 9.1 % (0-10); NRBC Flagged by Analyzer 0 % (0-5); Neutrophil # 3.53 X10^3/uL (2.7-7.7); Neutrophil % 45.6 % (47-70); Platelet Count 180 K/mm3 (150-450); RBC Distribution Width CV 13.1 % (11.6-14.6); Red Blood Count 4.86 M/mm3 (4.6-6.2); White Blood Count 7.7 K/mm3 (4.4-11.0)
[2021-05-25 12:42] LABS: Color, Urine Yellow (Yellow); Glucose, Dipstick Normal (Normal); Ketone-Dipstick 5 mg/dl (Negative); Leukocyte Esterase-Dipstick Negative /ul (Negative); Nitrite-Dipstick Negative (Negative); Occult Blood-Urine Negative /ul (Negative); Protein-Dipstick Negative (Negative); Urine Bilirubin Dipstick Negative (Negative); Urine Clarity Sl. Cloudy (Clear); Urine Urobilinogen Normal (Normal)
[2021-05-25 12:58] LABS: ALB/GLOB Ratio 1.1 RATIO (0.9-2.4); AST(SGOT) 30 U/L (15-37); Alanine Aminotransfer ALT/SGPT 59 U/L (16-61); Albumin, Serum 3.7 g/dL (3.2-5.0); Alkaline Phosphatase 68 U/L (45-117); Anion Gap 8 (5-15); BUN 13 mg/dL (7-18); BUN/Creat Ratio 11.6 RATIO (10-20); Calcium,Total 8.9 mg/dL (8.5-10.1); Chloride 107 mmol/L (98-107); Cholesterol 119 mg/dL (200); Creatinine, Serum 1.12 mg/dL (0.70-1.30); EST Glomerular Filtration Rate 71 mL/min (>60); Est Glom Filt Rate - Afr Amer 86 mL/min (>60); Globulin 3.4 g/dL (2.2-4.2); Glucose 128 mg/dL (74-106); High Density Lipoprotein 73 mg/dL; PSA,Total - Annual Screen 0.58 ng/mL (0.00-4.00); Potassium 4.4 mmol/L (3.5-5.1); Protein, Total 7.1 g/dL (6.4-8.2); Sodium Level 140 mmol/L (136-145); Triglycerides 78 mg/dL; Very Low Density Lipoprotein 16 mg/dL (5-40)
[2021-05-25 12:58] LABS: Squamous Epithelial Cells - UA 0-5 SEEN /hpf (0-5)
== END ==
LOC: BIMLAB 08:48
PROVIDERS: PCP Internal Medicine; Referring Provider Internal Medicine; Visit Provider Internal Medicine
DX: I10 Essential (primary) hypertension (principal); N40.0 Benign prostatic hyperplasia without lower urinary tract symptoms
CPT/HCPCS: 36415; 80053; 80061; 81001; 84153; 85025; G0103

== ENCOUNTER 2021-07-09 08:32 | Outpatient (CLI) | payer OTHER, MEDICAID, SELFPAY | END 2021-07-09 23:59 | disposition short-term general hospital (02) | LOC: LABSPEC 08:32 | PROVIDERS: PCP Internal Medicine; Referring Provider Physician Assistant Surgical; Visit Provider Physician Assistant Surgical | DX: Z20.828 Contact with and (suspected) exposure to other viral communicable diseases (principal) | CPT/HCPCS: 87635; U0003; U0005 ==

== ENCOUNTER 2021-07-26 12:08 | Emergency (ER) | payer OTHER, MEDICAID, SELFPAY ==
[2021-07-26 12:09] VITALS: BP 170/88; PULSE 96; RESP 18; TEMP 36.1; O2SAT 97; BMI 31.5
--- NOTE | 2021-07-26 12:42 | EKG12_ITS ---
Test Reason : RIB PAIN Blood Pressure : / mmHG Vent. Rate : 072 BPM Atrial Rate : 072 BPM P-R Int : 188 ms QRS Dur : 086 ms QT Int : 368 ms P-R-T Axes : 047 005 053 degrees QTc Int : 402 ms Normal sinus rhythm Normal ECG Confirmed by LUKE SZYMANSKI, JOHANNA ([id number]), editor managing newspaper LESLY DANIEL ([id number]) on 07/27/2021 11:36:49 AM Referred By: THOMAS Confirmed By:JOHANNA BUTLER MD
[2021-07-26 12:59] LABS: Absolute Lymphocyte Count 2.48 X10^3/uL (0.83-4.51); Absolute Neutrophil Count 4.2 X10^3/uL (2.0-7.7); Basophil# 0.08 X10^3/uL; Eosinophil# 0.73 X10^3/uL; Eosinophils% 8.9 % (0-5); Hematocrit 46.2 % (40-54); Hemoglobin 16.3 g/dL (13.0-16.5); Lymphocyte # 2.48 X10^3/ul (0.83-4.51); Lymphocyte % 30.4 % (19-41); Mean Corp Hgb Conc 35.3 g/dL (32-36); Mean Corpuscular Hgb 32.2 pg (27.0-32.0); Mean Corpuscular Volume 91.3 fL (80-94); Mean Platelet Vol. 10.1 fl (6.2-12.0); Monocyte# 0.64 X10^3/uL; Monocyte% 7.8 % (0-10); NRBC Flagged by Analyzer 0 % (0-5); Neutrophil # 4.15 X10^3/uL (2.7-7.7); Neutrophil % 50.8 % (47-70); Platelet Count 190 K/mm3 (150-450); RBC Distribution Width CV 12.6 % (11.6-14.6); RBC Distribution Width SD 41.4 fl (35.1-43.9); Red Blood Count 5.06 M/mm3 (4.6-6.2); White Blood Count 8.2 K/mm3 (4.4-11.0)
--- NOTE | 2021-07-26 13:00 | CT_ITS ---
STUDY: CTA CHEST REASON FOR EXAM: Male, 60 years old. Right chest pain, high risk DVT RADIATION DOSAGE (If Supplied By Facility): CTDIvol = ( 19.83 ) mGy, DLP = ( 1787.01 ) mGycm TECHNIQUE: The examination was performed with the intravenous administration of IV 100mL Isovue-370. Post-processing of the angiographic images was performed, with multiplanar reformation and 3D reconstruction. Individualized dose optimization techniques were used for this CT. COMPARISON: None. FINDINGS: Normal enhancement of the main pulmonary artery and right and left pulmonary arteries. Normal enhancement of the bilateral peripheral pulmonary arteries. There is no demonstrated pulmonary embolism. Normal thoracic aorta and visualized great vessels. There is no demonstrated aortic dissection. Normal heart and pericardium. No evidence of coronary artery calcification. There are visualized mediastinal lymph nodes, which are within normal size limits, and with normal morphology. Normal hilar regions. Normal visualized trachea and bronchi. The lungs are well expanded. Small bullous changes in the upper medial aspect of the right upper lobe. Normal pleura. Normal chest wall structures. There are degenerative changes of thoracic spine. Fatty infiltration of the liver. There is a 2.1 cm well-defined hypodense nodule in the right adrenal gland suggestive of a small adrenal adenoma. CT/CTA Chest W/WO Contrast IMPRESSION: No evidence of pulmonary embolism. Mild bullous changes in the medial aspect of the right upper lobe. Fenestration of the liver. 2.1 cm well-defined hypodense nodule in the right adrenal gland suggestive of adrenal adenoma. Electronically Signed: Jorge Clements MD at 13:58 EST ,
[2021-07-26 13:11] LABS: AST(SGOT) 27 U/L (15-37); Alanine Aminotransfer ALT/SGPT 66 U/L (16-61); Albumin, Serum 3.7 g/dL (3.2-5.0); Alkaline Phosphatase 80 U/L (45-117); Anion Gap 3 (5-15); BUN 16 mg/dL (7-18); BUN/Creat Ratio 13.3 RATIO (10-20); Bilirubin, Direct 0.12 mg/dL (0.00-0.30); Calcium,Total 8.9 mg/dL (8.5-10.1); Chloride 109 mmol/L (98-107); EST Glomerular Filtration Rate 66 mL/min (>60); Est Glom Filt Rate - Afr Amer 79 mL/min (>60); Estimated Creatinine Clearance 63.33 ml/min; Globulin 3.4 g/dL (2.2-4.2); Glucose 175 mg/dL (74-106); Lipase 440 U/L (73-393); Potassium 4.6 mmol/L (3.5-5.1); Protein, Total 7.1 g/dL (6.4-8.2); Sodium Level 140 mmol/L (136-145)
--- NOTE | 2021-07-26 13:12 | CT_ITS ---
STUDY: CT ABDOMEN AND PELVIS WITH CONTRAST REASON FOR EXAM: Male, 60 years old. RUQ pain RADIATION DOSAGE (If Supplied By Facility): CTDIvol = ( 19.83 ) mGy, DLP = ( 1787.01 ) mGycm TECHNIQUE: Transaxial images were obtained from the dome of the diaphragm to the symphysis pubis without oral contrast. IV 100mL Isovue-370 was administered. Sagittal and coronal images were reconstructed. Individualized dose optimization techniques were used for this CT. COMPARISON: None. FINDINGS: The visualized lung bases are unremarkable. The visualized portions of the heart are within normal limits. There is decreased attenuation of the liver consistent with steatosis. There is a 7.1 mm cyst in the inferior peripheral aspect of the right lobe of the liver. Mild hepatomegaly. Normal gallbladder and extrahepatic biliary system. Normal spleen. Normal pancreas. There is a small, circumscribed, smooth, low attenuation right adrenal mass, consistent with an adrenal adenoma. This measures 2.1 cm. Normal left adrenal gland. Normal right kidney. Normal left kidney. Normal visualized stomach. Normal small intestine. Normal colon. The appendix is visualized and appears normal. Normal abdominal aorta. Normal inferior vena cava. Normal retroperitoneum. There is a distended urinary bladder. Central prostatic calcification. Normal abdominal wall. There are diffuse degenerative changes of the visualized lumbar spine. CT/Abdomen/Pelvis W IV Cont ONLY IMPRESSION: Mild hepatomegaly and diffuse fatty infiltration of the liver. 7.1 mm cyst in the inferior peripheral aspect of the right lobe of the liver. Electronically Signed: Jorge Clements MD at 13:54 EST ,
--- NOTE | 2021-07-26 13:16 | EX.ED.DYSGE1 ---
HPI History of Present Illness Chief Complaint: Chest Other Informant: patient Narrative Narrative: Patient is 60-year-old male presenting with a catching sensation in his right lower ribs. States is been present for about 3 days. He notes it was there before he shoveled snow. His seems to think that maybe he is breathing a little harder than normal and was wheezing last night but he denies any shortness of breath. It is worse when he tries to lay on either side. He has never anything pain like this before. It is not worse when he takes a deep breath. No change with eating. Patient did recently returned from [place] about 2 weeks ago. He denies any history of DVT or PE. He denies any swelling of his legs. He does have chronic numbness of his left leg but no new numbness. Could not get into see his primary care doctor today so he came to the emergency room. [facility] Medical History Alcoholism BPH (benign prostatic hyperplasia) GERD (gastroesophageal reflux disease) H/o left broken arm Health care maintenance Home Medications quetiapine 100 mg tablet 150 mg PO QHS 90 Days #135 tab 06/02/20 [Rx Last Taken Unknown] duloxetine 60 mg capsule,delayed release 60 mg PO DAILY #90 cap 02/24/21 [Rx Last Taken Unknown] doxazosin 2 mg tablet 2 mg PO QHS #30 tab 05/25/21 [Rx Last Taken Unknown] Allergy/AdvReac Type Severity Reaction Status Date / Time codeine Allergy Itching Verified 07/26/21 12:08 Family History Father Heart disease Grandfather Heart disease Mother Hypertension Cancer uterine Diabetes Grandmother CVA (cerebral vascular accident) Myocardial infarction, Onset Age: 60 Social History household members: spouse housing: house current occupational status: employed Smoking Status: Former smoker Tobacco: How many years used: 13 Smokeless tobacco user: chewing tobacco how long ago did patient quit smokin alcohol intake: current alcohol intake frequency: a few times a week Alcohol type: beer substance use type: does not use what type of physical activity do you participate in: none frequency: 3-4 times per week do you feel safe at home: Yes ROS ROS ED Constitutional Constitutional ED: Denies chills or fever(s) Eyes Eyes: Denies change in vision ENT ENT ED: Denies ear pain or sore throat Cardiovascular Cardiovascular: Reports chest pain; Denies palpitations Respiratory/Chest Respiratory/Chest: Reports other Details: Mild intermittent wheezing ; Denies cough or dyspnea Gastrointestinal Gastrointestinal: Denies abdominal pain, diarrhea, nausea or vomiting Genitourinary Genitourinary ED: Denies dysuria or hematuria Musculoskeletal Musculoskeletal: Denies arthralgias, back pain, myalgias or neck pain Integumentary Denies rash Neurologic Neurologic: Denies headache(s), paresthesias or weakness Psychiatric Psychiatric: Denies depression EXAM Physical Exam Const Vital Signs: 07/26/21 12:09 07/26/21 12:36 07/26/21 14:27 Temperature 96.9 F L Temperature Source Temporal Pulse Rate 96 Respiratory Rate 18 Respiratory Effort Normal Non-Labored Respiratory Pattern Normal Blood Pressure 170/88 H 154/90 H Blood Pressure Mean 115 111 Pulse Ox 97 96 Oxygen Delivery Method Room Air Room Air Positive well nourished and well developed General Appearance ED: well developed HEENT Reports moist mucous membranes Negative for trauma or tenderness Eyes PERRL and EOMs intact bilaterally Neck supple and no JVD General: Negative for tenderness Chest Wall inspection of chest normal and palpation of chest normal Chest Narrative: Patient points to his right lower ribs and between the midclavicular line and the mid axillary line but the pain is not reproducible with direct palpation. Resp normal respiratory effort and clear to auscultation bilaterally Cardio regular rate, regular rhythm and no murmurs GI normal to inspection, nondistended, normoactive bowel sounds and non-tender GI Narrative: Negative Arredondo sign Palpation: soft Back/Spine no CVA tenderness Cervical Spine: Negative for cervical spine tenderness Thoracic Spine / Upper Back: Negative for thoracic spinal tenderness Extremity normal to inspection General Extremety ED: Negative for edema or tenderness General Extremity: Negative for edema Neuro oriented x3 Sensorium / Orientation: alert Motor Exam: Negative for general weakness Psych mental status grossly normal Skin no rashes or lesions noted and no wounds MDM MDM MDM Narrative Medical decision making narrative: Patient is evaluated for right lower rib pain. The pain could be muscle skeletal, pleuritic or referred GI pain. Is not clear based on his physical exam. He did recently travel [place] so he is at higher risk for PE. Work-up including CBC, CMP, lipase and urinalysis are all grossly normal. EKG is normal and I do not think this is referred cardiac pain. Work-up is largely normal. Patient is found to have incidental cyst of his liver and an adenoma on his right adrenal gland. He is informed of these findings and need for outpatient nonemergent monitoring.Patient counseled return precautions. He verbalizes understanding this plan. He is discharged home in stable condition. Lab Data Labs: Laboratory Results - last 24 hr 07/26/21 07/26/21 07/26/21 12:28 12:28 12:50 WBC 8.2 RBC 5.06 Hgb 16.3 Hct 46.2 MCV 91.3 MCH 32.2 H MCHC 35.3 RDW Std Deviation 41.4 RDW Coeff of [place]hel[place] 12.6 Plt Count 190 MPV 10.1 Immature Gran % (Auto) 1.100 H Neut % (Auto) 50.8 Lymph % (Auto) 30.4 [place] % (Auto) 7.8 Eos % (Auto) 8.9 H Baso % (Auto) 1.0 Absolute Neuts (auto) 4.2 Absolute Lymphs (auto) 2.48 Nucleated RBC % 0 Sodium 140 Potassium 4.6 Chloride 109 H Carbon Dioxide 28.0 Anion Gap 3 L BUN 16 Creatinine 1.20 Estim Creat Clear Calc 63.33 Est GFR (MDRD) Af Amer 79 Est GFR (MDRD) Non-Af 66 BUN/Creatinine Ratio 13.3 Glucose 175 H Calcium 8.9 Total Bilirubin 0.30 Direct Bilirubin 0.12 AST 27 ALT 66 H Alkaline Phosphatase 80 Total Protein 7.1 Albumin 3.7 Globulin 3.4 Lipase 440 H Urine Color Yellow Urine Clarity Clear Urine pH 8.0 Ur Specific [place] 1.010 Urine Protein Negative Urine Glucose (UA) Normal Urine Ketones Negative Urine Occult Blood Negative Urine Nitrite Negative Urine Bilirubin Negative Urine Urobilinogen Normal Ur Leukocyte Esterase Negative Urine RBC 0 SEEN Urine WBC 0 SEEN Ur Squamous Epith Cells 0 SEEN Urine Bacteria 0 SEEN Urine Mucus 0 SEEN Radiography Diagnostic Testing: Clinical Impression(s) from Imaging Studies Chest CTA 07/26/21 13:00 IMPRESSION: No evidence of pulmonary embolism. Mild bullous changes in the medial aspect of the right upper lobe. Fenestration of the liver. 2.1 cm well-defined hypodense nodule in the right adrenal gland suggestive of adrenal adenoma. Electronically Signed: Jorge Clements MD at 13:58 EST , Abdomen/Pelvis CT 07/26/21 13:12 IMPRESSION: Mild hepatomegaly and diffuse fatty infiltration of the liver. 7.1 mm cyst in the inferior peripheral aspect of the right lobe of the liver. Electronically Signed: Jorge Clements MD at 13:54 EST , Rhythm Strip Rhythm Strip: Sinus Rhythm Rate: 72 Ectopy: None EKG Initial EKG: Attestation: I personally reviewed and interpreted this EKG as follows: Interpretation: Sinus Rhythm Comments: Normal sinus rhythm at a rate of 72 Normal axis Normal intervals Normal ST segments No change compared to prior EKG on 09/11/2017 Discharge Plan Triage Chief Complaint: Chest Other Other Complaint: Abd Pain ED Provider: Sara Cerda Dx/Rx/DC Orders Clinical Impression: Rib pain on right side, Fatty liver, Hepatic cyst Instructions: ED Abdominal Pain Unkn Cause Male... Prescriptions: No Action duloxetine 60 mg capsule,delayed release(DR/EC) 60 mg PO DAILY Qty: 90 RF: 1 doxazosin 2 mg tablet 2 mg PO QHS Qty: 30 RF: 1 quetiapine 100 mg tablet 150 mg PO QHS 90 Days Qty: 135 RF: 3 Primary Care Provider: Barbara Escudero Referrals: Barbara Escudero MD [Primary Care Provider] - Disposition Disposition: Home, Self Care
[2021-07-26 13:52] LABS: Bacteria 0 SEEN /hpf (None Seen); Mucous, Urine 0 SEEN /hpf (<or=2+); Red Blood Cells-Urine 0 SEEN /hpf (0-5); Squamous Epithelial Cells - UA 0 SEEN /hpf (0-5); White Blood Cells 0 SEEN /hpf (0-5)
[2021-07-26 13:54] LABS: Color, Urine Yellow (Yellow); Glucose, Dipstick Normal (Normal); Ketone-Dipstick Negative (Negative); Leukocyte Esterase-Dipstick Negative /ul (Negative); Nitrite-Dipstick Negative (Negative); Occult Blood-Urine Negative /ul (Negative); Protein-Dipstick Negative (Negative); Urine Bilirubin Dipstick Negative (Negative); Urine Clarity Clear (Clear); Urine Urobilinogen Normal (Normal)
[2021-07-26 14:27] VITALS: BP 154/90; O2SAT 96
== END 2021-07-26 23:59 | disposition home or self-care (01) ==
PROVIDERS: Emergency Provider Emergency Medicine; PCP Internal Medicine; Visit Provider Emergency Medicine
DX: R07.81 Pleurodynia (principal); F10.20 Alcohol dependence, uncomplicated; K76.0 Fatty (change of) liver, not elsewhere classified; F17.220 Nicotine dependence, chewing tobacco, uncomplicated; D35.01 Benign neoplasm of right adrenal gland; K76.89 Other specified diseases of liver; N40.0 Benign prostatic hyperplasia without lower urinary tract symptoms; K21.9 Gastro-esophageal reflux disease without esophagitis; Z79.899 Other long term (current) drug therapy
CPT/HCPCS: 71275; 74177; 80048; 80076; 81001; 83690; 85025; 93005; 99284; Q9967; A4216

== ENCOUNTER → 2021-12-29 | Outpatient (CLI) | payer OTHER, MEDICAID, SELFPAY | END | disposition home or self-care (01) | LOC: LABSPEC 10:02 | PROVIDERS: PCP Internal Medicine; Referring Provider Internal Medicine; Visit Provider Internal Medicine | DX: U07.1 COVID-19 (principal); R05.9 Cough, unspecified | CPT/HCPCS: 87635; U0003; U0005 ==

== ENCOUNTER → 2022-10-19 | Outpatient (CLI) | payer MEDICAID, SELFPAY ==
[2022-10-19 12:23] LABS: Absolute Lymphocyte Count 2.52 X10^3/uL (0.83-4.51); Absolute Neutrophil Count 3.4 X10^3/uL (2.0-7.7); Basophil# 0.09 X10^3/uL; Basophil% 1.2 % (0-1); Eosinophil# 0.56 X10^3/uL; Eosinophils% 7.6 % (0-5); Hematocrit 45.7 % (40-54); Hemoglobin 16.1 g/dL (13.0-16.5); Lymphocyte # 2.52 X10^3/ul (0.83-4.51); Lymphocyte % 34.1 % (19-41); Mean Corp Hgb Conc 35.2 g/dL (32-36); Mean Corpuscular Hgb 33.1 pg (27.0-32.0); Mean Platelet Vol. 10.1 fl (6.2-12.0); Monocyte# 0.77 X10^3/uL; Monocyte% 10.4 % (0-10); NRBC Flagged by Analyzer 0 % (0-5); Neutrophil # 3.37 X10^3/uL (2.7-7.7); Neutrophil % 45.5 % (47-70); Platelet Count 169 K/mm3 (150-450); RBC Distribution Width CV 12.4 % (11.6-14.6); RBC Distribution Width SD 42.7 fl (35.1-43.9); Red Blood Count 4.86 M/mm3 (4.6-6.2); White Blood Count 7.4 K/mm3 (4.4-11.0)
[2022-10-19 12:40] LABS: Hemoglobin A1c 6.7 % (3.8-5.6)
[2022-10-19 12:47] LABS: ALB/GLOB Ratio 1.2 RATIO (0.9-2.4); AST(SGOT) 45 U/L (15-37); Alanine Aminotransfer ALT/SGPT 94 U/L (16-61); Albumin, Serum 3.6 g/dL (3.2-5.0); Alkaline Phosphatase 87 U/L (45-117); Anion Gap 5 (5-15); BUN 17 mg/dL (7-18); BUN/Creat Ratio 16.2 RATIO (10-20); Calcium,Total 8.8 mg/dL (8.5-10.1); Chloride 107 mmol/L (98-107); Cholesterol 134 mg/dL (200); Creatinine, Serum 1.05 mg/dL (0.70-1.30); EST Glomerular Filtration Rate 76 mL/min (>60); Est Glom Filt Rate - Afr Amer 92 mL/min (>60); Globulin 2.9 g/dL (2.2-4.2); Glucose 206 mg/dL (74-106); High Density Lipoprotein 71 mg/dL; PSA,Total - Annual Screen 0.69 ng/mL (0.00-4.00); Potassium 4.3 mmol/L (3.5-5.1); Protein, Total 6.5 g/dL (6.4-8.2); Sodium Level 138 mmol/L (136-145); Triglycerides 81 mg/dL; Very Low Density Lipoprotein 16 mg/dL (5-40)
== END | disposition home or self-care (01) ==
LOC: BIMLAB 10:01
PROVIDERS: PCP Internal Medicine; Referring Provider Internal Medicine; Visit Provider Internal Medicine
DX: I10 Essential (primary) hypertension (principal); R73.03 Prediabetes; N40.0 Benign prostatic hyperplasia without lower urinary tract symptoms
CPT/HCPCS: 84153; 36415; 80053; 80061; 83036; 85025; G0103

== ENCOUNTER → 2025-01-14 | Outpatient (CLI) | payer MEDICAID, SELFPAY ==
[2025-01-14 14:03] LABS: Hematocrit 45.0 % (40-54); Hemoglobin 16.0 g/dL (13.0-16.5); Immature Granulocytes Count 0.060 X10^3/uL (0.0-0.0); Mean Corp Hgb Conc 35.6 g/dL (32-36); Mean Corpuscular Volume 92.8 fL (80-94); Mean Platelet Vol. 10.2 fl (6.2-12.0); NRBC Flagged by Analyzer 0 % (0-5); Platelet Count 143 K/mm3 (150-450); RBC Distribution Width CV 12.3 % (11.6-14.6); RBC Distribution Width SD 42.2 fl (35.1-43.9); Red Blood Count 4.85 M/mm3 (4.6-6.2); White Blood Count 5.6 K/mm3 (4.4-11.0)
[2025-01-14 14:44] LABS: Cholesterol 124 mg/dL (<=200); Low Density Lipoprotein Calc. 11 mg/dL; PSA,Total - Annual Screen 0.40 ng/mL (0.02-4.00); Triglycerides 146 mg/dL; Very Low Density Lipoprotein 29 mg/dL (5-40); cholesterol:hdl ratio screen 1.48
[2025-01-14 14:45] LABS: AST(SGOT) 34 U/L (<=37); Alanine Aminotransfer ALT/SGPT 69 U/L (<=46); Albumin, Serum 4.2 g/dL (3.4-4.8); Alkaline Phosphatase 113 U/L (40-129); Anion Gap 13 (5-15); BUN 15 mg/dL (4-19); BUN/Creat Ratio 14.4 RATIO (10-20); Calcium,Total 9.5 mg/dL (7.6-11.0); Carbon Dioxide 22.9 mmol/L (21.0-32.0); Chloride 100 mmol/L (98-108); Globulin 2.3 g/dL (2.2-4.2); Glucose 438 mg/dL (70-99); Potassium 4.7 mmol/L (3.3-5.1)
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
== END | disposition home or self-care (01) ==
LOC: LAB 13:27
PROVIDERS: PCP Internal Medicine; Referring Provider Physician Assistant; Visit Provider Physician Assistant
DX: Z12.5 Encounter for screening for malignant neoplasm of prostate (principal); I10 Essential (primary) hypertension; R73.09 Other abnormal glucose
CPT/HCPCS: 84153; 36415; 80053; 80061; 83036; 85025; G0103

== ENCOUNTER → 2025-03-05 | Outpatient (CLI) | payer MEDICAID, SELFPAY ==
[2025-03-05 17:12] LABS: Anion Gap 11 (5-15); BUN 16 mg/dL (4-19); BUN/Creat Ratio 15.2 RATIO (10-20); Calcium,Total 9.7 mg/dL (7.6-11.0); Carbon Dioxide 24.9 mmol/L (21.0-32.0); Chloride 103 mmol/L (98-108); Glucose 160 mg/dL (70-99); Potassium 5.3 mmol/L (3.3-5.1)
[2025-03-05 20:38] LABS: Creatinine, Urine (random) 179.00 mg/dL (39.00-259.00); Microalbumin,Random Urine < 12.0 mg/L (<20 mg/L)
== END | disposition home or self-care (01) ==
LOC: BIMLAB 14:38
PROVIDERS: PCP Internal Medicine; Referring Provider Internal Medicine; Visit Provider Internal Medicine
DX: E11.9 Type 2 diabetes mellitus without complications (principal)
CPT/HCPCS: 36415; 80048; 82043; 82570